=== PATIENT | female | born 1985 | race Caucasian/White ===

== ENCOUNTER 2018-05-13 11:54 | Observation (INO) | payer MEDICAID ==
[2018-05-13] MEDS ORDERED: PHENERGAN PO PRN (11:56)
[2018-05-13] MEDS ORDERED: TUCKS PAD TP PRN (11:56)
[2018-05-13] MEDS ORDERED: ZOFRAN IV PRN (11:56)
[2018-05-13] MEDS ORDERED: DULCOLAX PR PRN (11:56)
[2018-05-13] MEDS ORDERED: BENADRYL PO PRN (11:56)
[2018-05-13] MEDS ORDERED: LANSINOH TP PRN (11:56)
[2018-05-13] MEDS ORDERED: SODIUM CHLORIDE FLUSH SYRINGE 10 ML IV NR (12:00)
[2018-05-13] MEDS ORDERED: MAGNESIUM SULFATE 4GM/100ML 4 GM/100 ML BAG IV ONE (12:38)
[2018-05-13] MEDS ORDERED: MAGNESIUM SULFATE 40GM/1000ML 40 GM/1,000 ML BAG IV SCH (13:00)
[2018-05-13 13:07] LABS: Bacteria,Urine 1+ /HPF (Negative); Bilirubin,Urine NEG (Negative); Blood,Urine SM (Negative); Color,Urine Yellow (Yellow); Mucus,Urine FEW /HPF; Protein,Urine <15 mg/dL mg/dL (Negative); Urobilinogen,Urine < 2.0 mg/dL (<2.0)
[2018-05-13 13:18] LABS: Hematocrit 38.9 % (30.3-42.9); Hemoglobin 13.1 gm/dl (10.1-14.3); Mean Corpuscular HGB Conc 34 % (30-34); Mean Corpuscular Hemoglobin 31 pg (28-32); Mean Corpuscular Volume 93 fl (79-97); Platelet Count 346 K/mm3 (140-440); Red Blood Count 4.19 M/mm3 (3.65-5.03); Red Cell Distribution Width 13.2 % (13.2-15.2)
--- NOTE | 2018-05-13 13:24 | History and Physical Report ---
History of Present Illness Date of examination: 05/13/18 Date of admission: 05/13/18 12:13 Chief complaint: pt sent from office for admission d/t pre-e History of present illness: 6 days ago. complicated by GDM on insulin. Pt dx with ghtn at [facility] during delivery, pt denies TRINH/visual changes or epigastric pain. She reports "some times" feeling SOB and cold like symptoms. She also c/o feeling dizzy at times. She reports b/p yesterday by RN friend of hers 170/100 while at home. Initial b/p 140/100, repeat after 10 minutes 160/110. Advsied patient she has to go to [facility] for admission. Consulted with Dr. Buckner, pt to report to [facility] as a direct admit. bed control called for room. Dr. Sorto and Camilo Greenberg CNM aware of patient's status. Past History Past Medical History: no pertinent history Past Surgical History: no surgical history - Obstetrical History : 2 Para: 2 Hx # Term Pregnancies: 1 Number of Pregnancies: 1 Number of Living Children: 2 Medications and Allergies Allergies Allergy/AdvReac Type Severity Reaction Status Date / Time Penicillins Allergy Vomiting Verified 05/07/18 05:47 Home Medications Medication Instructions Recorded Confirmed Last Taken Type Vit-Fe Fumar-FA 1 tab PO DAILY 05/07/18 05/07/18 05/06/18 10:00 History Ibuprofen [Motrin 800 MG tab] 800 mg PO Q8HR PRN #30 tablet 05/08/18 Unknown Rx Active Meds: Active Medications Acetaminophen (Tylenol) 650 mg PO Q4H PRN PRN Reason: Pain MILD(1-3)/Fever >100.5/TRINH Bisacodyl (Dulcolax) 10 mg VA BID PRN PRN Reason: Constipation Diphenhydramine HCl (Benadryl) 25 mg PO Q6H PRN PRN Reason: Itching Magnesium Sulfate (Magnesium Sulfate 40gm/1000ml) 40 gm in 1,000 mls @ 50 mls/hr IV DIRECT MICHELL Multi-Ingredient Ointment (Lansinoh) 1 applic TP PRN PRN PRN Reason: Sore Nipples Multivitamins/Iron/Calcium ( Vitamin) 1 each PO QDAY MICHELL Ondansetron HCl (Zofran) 4 mg IV Q8H PRN PRN Reason: Nausea And Vomiting Promethazine HCl (Phenergan) 25 mg PO Q6H PRN PRN Reason: Nausea And Vomiting Sodium Chloride (Sodium Chloride Flush Syringe 10 Ml) 10 ml IV PRN NR Stop: 05/13/18 23:59 Witch Marina/Glycerin (Tucks Pad) 1 each TP PRN PRN PRN Reason: Hemorrhoid/cleansing/soothing Review of Systems All systems: negative Ears, nose, mouth and throat: no headache Cardiovascular: lightheadedness, shortness of breath, high blood pressure, no chest pain Respiratory: shortness of breath, no cough, no congestion, no wheezing Neurological: no double vision, no loss of vision - Vital Signs Vital signs: Vital Signs Pulse BP 86 175/100 05/13/18 12:29 05/13/18 12:29 Temp Pulse Resp BP Pulse Ox 87 173/103 05/13/18 13:13 05/13/18 13:13 - Physical Exam Breasts: Positive: normal Cardiovascular: Regular rate Lungs: Positive: Clear to auscultation, Normal air movement Abdomen: Positive: normal appearance, soft Genitourinary (Female): Positive: normal external genitalia Vulva: both: normal Results Result Diagrams: 05/13/18 13:00 Abnormal lab results 05/13/18 Range/Units 12:25 Urine WBC (Auto) 9.0 H (0.0-6.0) /HPF All other labs normal. Assessment and Plan 32 y/o 6 days post came to office for b/p check as she was dx with GHTN during delivery. b/p found to be elevated x2 with c/o SOB and dizziness. Plan discussed for admission to [facility] for pre-e. CXR ordered for SOB. patient verbalizes understanding. Admission orders in EMR. - Patient Problems (1) Pre-eclampsia, Current Visit: Yes Status: Acute (2) SOB (shortness of breath) Current Visit: Yes Status: Acute (3) Dizziness Current Visit: Yes Status: Acute
[2018-05-13 13:32] LABS: Alanine Aminotransferase 28 units/L (7-56); Uric Acid 5.4 mg/dL (3.5-7.6)
[2018-05-13] MEDS ORDERED: LACTATED RINGERS 1,000 ML ONE (13:50)
--- NOTE | 2018-05-13 13:53 | XRay Report ---
ROUTINE CHEST, TWO VIEWS: HISTORY: Shortness of breath. The trachea, heart, mediastinal contour, lung frankel and bony thorax are unremarkable. IMPRESSION: Unremarkable chest x-ray.
[2018-05-13] MEDS: LACTATED RINGERS 1,000 ML IV SCH (14:00)
[2018-05-13] MEDS: TYLENOL PO PRN ×2 (14:34→20:46)
[2018-05-13] MEDS ORDERED: APRESOLINE IV PRN (16:50)
[2018-05-13] MEDS: NORMODYNE PO SCH ×2 (16:58→21:26)
[2018-05-14] MEDS: LACTATED RINGERS 1,000 ML IV SCH (00:36)
[2018-05-14] MEDS: TYLENOL PO PRN (03:26)
--- NOTE | 2018-05-14 07:49 | Progress Note ---
Assessment and Plan patient resting, c/o dry throat and TRINH not relieved by Tylenol. b/p improved on labetalol down from 170's/100 on admission to 120-140's/60-80's. CXR normal. Will rx throat lozenge and norco for TRINH. Mag sulfate to continue until 1400 today. Last mag level 5.9. urine output good. Continue current management. Patient requesting d/c home as soon as possible. Will consult Dr. Buckner. - Patient Problems (1) Pre-eclampsia, Current Visit: Yes Status: Acute (2) SOB (shortness of breath) Current Visit: Yes Status: Acute (3) Dizziness Current Visit: Yes Status: Acute Subjective - Subjective Date of service: 05/14/18 Principal diagnosis: day #7; pre-e Interval history: 6 days ago. complicated by GDM on insulin. Pt dx with ghtn at [facility] during delivery, pt denies TRINH/visual changes or epigastric pain. She reports "some times" feeling SOB and cold like symptoms. She also c/o feeling dizzy at times. She reports b/p yesterday by RN friend of hers 170/100 while at home. Initial b/p 140/100, repeat after 10 minutes 160/110. Advsied patient she has to go to [facility] for admission. Consulted with Dr. Buckner, pt to report to [facility] as a direct admit. bed control called for room. Dr. Sorto and Camilo Greenberg CNM aware of patient's status. Patient reports: appetite normal, voiding normally, dizzy ambulation, ambulating normally, no nauseated Objective - Vital Signs Latest vital signs: Vital Signs Temp Pulse Resp BP BP Pulse Ox 05/14/18 07:42 76 96 05/14/18 07:37 77 96 05/14/18 07:36 79 94 05/14/18 07:32 77 96 05/14/18 07:27 85 97 05/14/18 07:22 81 95 05/14/18 07:18 80 144/83 94 05/14/18 07:17 75 92 05/14/18 07:12 80 94 05/14/18 07:11 83 94 05/14/18 07:07 81 94 05/14/18 07:05 89 94 12/28/18 07:02 88 97 05/14/18 06:57 87 96 12/18 06:17 80 131/83 12/18 06:15 86 95 12/18 06:13 85 12/18 06:10 85 94 12/18 06:07 82 94 05/14/18 06:05 78 94 05/14/18 06:01 85 94 05/14/18 06:00 84 95 05/14/18 05:55 79 94 05/14/18 05:50 77 94 12/18 05:45 79 94 05/14/18 05:40 78 94 05/14/18 05:35 79 94 05/14/18 05:30 99 H 96 05/14/18 05:27 81 94 05/14/18 05:25 82 94 05/14/18 05:21 82 94 05/14/18 05:20 90 97 05/14/18 05:18 86 133/90 05/14/18 05:15 93 H 96 05/14/18 05:14 75 94 05/14/18 05:10 82 93 12/18 05:05 83 93 05/14/18 05:00 78 93 12/18 04:55 81 93 05/14/18 04:50 81 93 12/18 04:45 82 93 05/14/18 04:40 81 92 12/18 04:35 76 93 05/14/18 04:30 74 93 12/18 04:26 18 05/14/18 04:25 73 93 05/14/18 04:23 91 H 94 05/14/18 04:20 79 93 12/18 04:18 77 142/75 12/18 04:15 74 94 05/14/18 04:10 76 93 05/14/18 04:05 77 93 05/14/18 04:03 78 94 05/14/18 04:00 78 93 05/14/18 03:55 80 93 12/18 03:53 74 93 12/18 03:50 75 94 05/14/18 03:45 78 94 1228/18 03:43 77 94 12/18 03:40 77 94 05/14/18 03:35 79 94 05/14/18 03:34 97.1 F L 80 20 129/75 95 12/28/18 03:33 77 94 12/28/18 03:30 78 94 12/28/18 03:26 20 12/18 03:25 73 95 12/28/18 03:20 78 95 12/28/18 03:18 77 129/75 12/28/18 03:17 70 94 1228/18 03:15 76 95 12/18 03:10 82 96 12/18 03:07 81 94 12/18 03:05 87 96 1228/18 02:30 87 95 12/18 02:25 79 93 1228/18 02:20 78 95 12/18 02:19 81 94 1228/18 02:18 78 128/60 12/18 02:15 82 94 12/18 02:13 79 94 12/18 02:10 81 94 12/18 02:05 80 94 12/18 02:00 80 94 12/18 01:55 79 94 12/18 01:50 78 94 12/28/18 01:45 80 96 12/28/18 01:40 79 94 12/28/18 01:39 81 94 12//18 01:35 82 94 12/18 01:33 79 94 12/18 01:30 77 94 1228/18 01:28 78 94 12/18 01:25 80 94 12/28/18 01:20 79 94 12/18 01:17 75 112/68 12/18 01:15 81 94 12/18 01:11 79 94 1228/18 01:10 79 95 1228/18 01:05 80 94 1228/18 01:02 82 94 1228/18 01:00 89 96 12/28/18 00:57 79 94 1228/18 00:55 79 95 12/28/18 00:50 78 95 12/28/18 00:45 79 95 12/28/18 00:40 80 95 12/28/18 00:35 79 95 12/28/18 00:31 80 94 12/28/18 00:30 80 95 12/28/18 00:25 86 95 12/28/18 00:23 82 94 12/28/18 00:20 80 95 05/14/18 00:18 84 18 110/60 05/14/18 00:17 79 94 05/14/18 00:15 81 95 05/14/18 00:10 90 96 05/14/18 00:05 90 96 05/13/18 23:36 81 94 05/13/18 23:32 81 94 05/13/18 23:31 81 95 05/13/18 23:26 84 92 05/13/18 23:23 89 94 05/13/18 23:21 85 95 05/13/18 23:18 80 115/63 05/13/18 23:17 79 93 05/13/18 23:16 82 96 05/13/18 23:11 84 95 05/13/18 23:06 85 95 05/13/18 23:01 89 96 05/13/18 22:56 85 96 05/13/18 22:51 85 96 05/13/18 22:46 83 96 05/13/18 22:44 64 94 05/13/18 22:41 90 95 05/13/18 22:36 90 95 05/13/18 22:35 83 94 05/13/18 22:31 85 95 05/13/18 22:29 85 94 05/13/18 22:26 86 94 05/13/18 22:22 85 94 05/13/18 22:21 83 95 05/13/18 22:17 85 145/91 94 05/13/18 22:16 92 H 95 05/13/18 22:11 86 95 05/13/18 22:06 88 96 05/13/18 22:01 85 128/85 96 05/13/18 21:56 86 94 05/13/18 21:51 86 95 05/13/18 21:50 83 94 05/13/18 21:46 82 18 96 05/13/18 21:41 93 H 96 05/13/18 21:36 88 94 05/13/18 21:31 88 94 05/13/18 21:30 87 94 05/13/18 21:26 89 142/65 95 18 21:23 86 94 05/13/18 21:21 87 97 05/13/18 21:18 88 142/65 91 12/27/18 21:16 89 95 12/27/18 21:11 87 96 18 21:06 92 H 96 18 21:01 92 H 98 18 20:56 91 H 97 18 20:51 90 95 05/13/18 20:46 94 H 18 97 18 20:41 98 H 97 18 20:36 87 97 18 20:29 97 H 94 18 20:25 94 H 95 18 20:20 91 H 95 18 20:17 90 128/80 18 20:15 97 H 96 18 20:13 95 H 94 18 20:10 97 H 96 18 20:07 89 93 18 20:05 93 H 96 18 20:00 98.4 F 87 18 128/80 96 18 19:55 82 93 18 19:50 93 H 94 18 19:45 84 94 18 19:40 86 93 18 19:39 80 94 18 19:35 85 94 18 19:30 84 94 18 19:25 84 95 18 19:24 88 94 18 19:20 90 95 18 19:18 88 88 18 19:17 87 135/80 18 19:15 90 96 18 19:12 90 94 18 19:10 93 H 96 18 19:05 95 H 96 18 19:00 91 H 94 18 18:55 83 94 18 18:52 84 94 18 18:50 83 95 18 18:46 92 H 94 18 18:45 86 94 18 18:40 87 94 18 18:35 90 95 18 18:34 93 H 94 18 18:30 91 H 97 18 18:25 91 H 96 18 18:20 84 96 18 18:17 83 140/89 18 18:15 82 96 18 18:11 84 94 18 18:10 84 95 18 18:05 86 96 18 18:00 89 96 18 17:55 85 98 18 17:50 81 97 18 17:45 86 95 18 17:40 84 97 18 17:35 82 96 18 17:30 85 95 18 17:25 92 H 97 18 17:20 90 97 18 17:18 82 150/82 90 18 17:15 90 97 18 17:10 92 H 96 18 17:05 92 H 95 18 17:00 90 18 95 18 16:58 82 156/92 18 16:57 83 94 18 16:55 93 H 96 05/13/18 16:50 95 H 96 18 16:45 88 97 18 16:40 79 95 18 16:35 81 97 05/13/18 16:30 79 98 05/13/18 16:14 77 95 05/13/18 16:10 77 156/92 18 16:09 80 91 05/13/18 16:04 88 94 18 16:00 18 05/13/18 15:59 86 96 18 15:54 93 H 97 05/13/18 15:49 89 96 18 15:44 87 97 18 15:40 82 93 18 15:39 76 178/94 95 18 15:34 83 95 18 15:29 90 96 18 15:24 82 96 18 15:19 91 H 96 18 15:14 90 96 18 15:10 88 173/94 92 18 15:09 87 95 18 15:04 83 97 18 15:00 20 05/13/18 14:59 81 96 05/13/18 14:54 84 98 05/13/18 14:49 83 96 05/13/18 14:44 89 98 05/13/18 14:39 83 172/99 92 05/13/18 14:35 71 148/90 94 05/13/18 14:34 76 95 05/13/18 14:30 83 144/90 05/13/18 14:29 84 95 05/13/18 14:25 87 156/93 94 05/13/18 14:24 84 97 05/13/18 14:20 88 134/64 05/13/18 14:19 83 96 05/13/18 14:15 84 145/97 05/13/18 14:14 82 96 05/13/18 14:10 72 143/90 05/13/18 14:09 80 96 05/13/18 14:05 78 150/101 05/13/18 14:04 80 98 05/13/18 14:00 77 155/104 05/13/18 13:59 85 97 05/13/18 13:13 87 173/103 05/13/18 12:58 72 161/103 05/13/18 12:43 72 160/98 05/13/18 12:29 86 175/100 Intake and Output 05/13/18 05/13/18 05/14/18 15:59 23:59 07:59 Intake Total 795 Output Total 1500 900 Balance -1500 -105 Intake: IV 795 Lactated Ringers 1,000 ml 795 @ 75 mls/hr IV DIRECT MICHELL Rx#:[id number] Output: Urine 1500 900 Void 1500 900 Other: Total, Output Amount 700 900 # Voids Void 1 1 1 Weight 83.915 kg - Exam Breasts: Present: normal, Cardiovascular: Present: Regular rate Lungs: Present: Clear to auscultation, Normal air movement Abdomen: Present: normal appearance, soft Extremities: Present: normal Deep Tendon Reflex Grade: Normal +2 - Labs Labs: Abnormal lab results 05/13/18 05/13/18 05/13/18 Range/Units 12:25 13:00 19:11 Creatinine 0.5 L (0.7-1.2) mg/dL Magnesium 4.80 H (1.7-2.3) mg/dL Lactate Dehydrogenase 287 H (91-180) units/L Urine WBC (Auto) 9.0 H (0.0-6.0) /HPF 05/14/18 05/14/18 Range/Units 01:16 06:04 Creatinine (0.7-1.2) mg/dL Magnesium 5.60 H 5.90 H (1.7-2.3) mg/dL Lactate Dehydrogenase (91-180) units/L Urine WBC (Auto) (0.0-6.0) /HPF
[2018-05-14] MEDS ORDERED: CEPACOL X STRENGTH MM PRN (08:00)
[2018-05-14] MEDS ORDERED: NORCO 5/325 PO PRN (08:00)
[2018-05-14] MEDS ORDERED: PRENATAL VITAMIN PO SCH (10:00)
[2018-05-14] MEDS: NORMODYNE PO SCH ×2 (10:45→20:40)
--- NOTE | 2018-05-14 16:33 | Event Note ---
Date: 05/14/18 mag sulfate d/c'd shortly before 1500 today. Advsied patient that we need to watch her pressures for 5-6 hours and make sure they are going to stay controlled on her labetalol. if they are well controlled, will consider d/c home tonight. Patient called and agrees with plan of care. she reports feeling better.
--- NOTE | 2018-05-14 20:16 | Discharge Summary ---
Providers - Providers Date of Admission: 05/13/18 12:13 Date of discharge: 05/14/18 (pt desires d/c home) Attending physician: POPPY GOMEZ Primary care physician: POPPY GOMEZ Hospitalization Reason for admission: other ( readmit for pre-e) complications: none (pre-e) Hospital course: blood pressure management, pre-e Condition at discharge: Good Disposition: DC-01 TO HOME OR SELFCARE - Discharge Diagnoses (1) Pre-eclampsia, Status: Acute Plan - Provider Discharge Summary Activity: routine, no sex for 6 weeks, no heavy lifting 4 weeks, no strenuous exercise Diet: routine Instructions: routine Additional instructions: [] Smoking cessation referral if applicable(refer to patient education folder for contact #) [] Refer to [facility] Booklet Call your doctor immediately for: * Fever > 100.5 * Heavy vaginal bleeding ( >1 pad per hour) * Severe persistent headache * Shortness of breath * Reddened, hot, painful area to leg or breast * Drainage or odor from incision. * Keep incision clean and dry at all times and follow doctor's instructions regarding bathing/showering - Follow up plan Follow up: POPPY GOMEZ MD [Primary Care Provider] - 05/17/18 11:00 am (Your labetalol prescription has been sent to the [facility] across the [address]. Please come to the [place] office for an appoitment Thursday @ 11am. Call for any questions or concerns.)
[2018-05-14 20:43] VITALS: BP 159/72
== END 2018-05-14 20:44 | disposition home or self-care (01) ==
LOC: 3A 11:54 → UNDOADMOB 11:54 → LD 12:13
PROVIDERS: ADMIT Obstetrics & Gynecology; ATTEND Obstetrics & Gynecology
DX: O14.95 Unspecified pre-eclampsia, complicating the puerperium (principal); O99.89 Other specified diseases and conditions complicating pregnancy, childbirth and the puerperium; R42 Dizziness and giddiness; R06.02 Shortness of breath
CPT/HCPCS: 36415; 71046; 81001; 82565; 83615; 83735; 84450; 84460; 84550; 85027; 96365; 96366; G0378; G0379; J3475; J7120